=== PATIENT | female | born 1960 | race Caucasian/White ===

== ENCOUNTER 2019-06-17 04:22 | Emergency (ER) | payer SELFPAY ==
[~2019-06-17] VITALS: Ht 177.8 cm; Wt 81.2 kg
--- OUTSIDE RECORDS SUMMARY | 2019-06-17 04:24 | XMS REPORT ---
[facility] Address Unknown Phone Unavailable Care Team Providers Care Telescope Operator Name Role Phone Unavailable Unavailable Problems This patient has no known problems. Allergies, Adverse Reactions, Alerts This patient has no known allergies or adverse reactions. Medications This patient has no known medications. Encounters Start Date/Time End Date/Time Encounter Type Admission Type Attending [facility] Care Department Encounter ID 2019-09-10 00:00:00 2019-09-10 00:00:[address] [facility] [id number] 2019-06-25 00:00:00 2019-06-25 00:00:[address] [facility] [id number] 2019-06-14 11:38:10 2019-06-14 11:38:[address] [facility] [id number] 2019-03-30 11:21:07 2019-03-30 11:21:[address] [facility] [id number] 2019-03-05 00:00:00 2019-03-05 00:00:[address] [facility] [id number] 2019-02-26 00:00:00 2019-02-26 00:00:[address] [facility] [id number] 2019-02-25 14:59:25 2019-02-25 14:59:[address] [facility] [id number] 2019-02-24 07:55:33 2019-02-24 07:55:[address] [facility] [id number] 2019-02-11 00:00:00 2019-02-11 00:00:[address] [facility] [id number] 2019-02-08 15:06:45 2019-02-08 15:06:[address] [facility] [id number] 2019-02-01 08:11:33 2019-02-01 08:11:[address] [facility] [id number] 2019-01-28 14:42:49 2019-01-28 14:42:[address] [facility] [id number] 2019-01-27 10:13:55 2019-01-27 10:13:[address] [facility] [id number] 2019-01-24 21:43:02 2019-01-24 21:43:[address] [facility] [id number] 2019-01-24 19:42:17 2019-01-24 19:42:17 Emergency [facility] [id number] 2018-11-13 09:59:00 2018-11-13 09:59:[address] [facility] [id number] 2018-11-12 10:55:15 2018-11-12 10:55:[address] [facility] [id number] 2018-10-26 00:00:00 2018-10-26 00:00:[address] [facility] [id number] 2018-07-30 09:00:52 2018-07-30 09:00:[address] [facility] [id number] 2018-07-27 00:00:00 2018-07-27 00:00:[address] [facility] [id number] 2018-07-20 00:00:00 2018-07-20 00:00:[address] [facility] [id number] 2018-07-15 00:00:00 2018-07-15 00:00:[address] [facility] [id number] 2018-07-03 00:00:00 2018-07-03 00:00:[address] [facility] [id number] 2018-07-02 00:00:00 2018-07-02 00:00:[address] [facility] [id number] 2018-07-01 00:00:00 2018-07-01 00:00:[address] [facility] [id number] 2018-06-15 14:52:44 2018-06-15 14:52:[address] [facility] [id number] 2018-06-11 00:00:00 2018-06-11 00:00:[address] [facility] [id number] 2018-04-30 11:15:56 2018-04-30 11:15:[address] [facility] [id number] 2018-04-28 14:34:24 2018-04-28 14:34:[address] [facility] [id number] 2018-04-23 11:07:43 2018-04-23 11:07:[address] [facility] [id number] 2018-03-17 00:00:00 2018-03-17 00:00:[address] [facility] [id number] 2018-03-12 11:39:26 2018-03-12 11:39:[address] [facility] [id number] 2018-03-12 08:49:46 2018-03-12 08:49:[address] [facility] [id number] 2018-03-10 00:00:00 2018-03-10 00:00:[address] [facility] [id number] 2018-02-11 13:29:55 2018-02-11 13:29:[address] [facility] [id number] 2018-01-22 08:41:14 2018-01-22 08:41:[address] [facility] [id number] 2018-01-20 14:58:57 2018-01-20 14:58:[address] [facility] [id number] 2018-01-20 14:11:17 2018-01-20 14:11:[address] [facility] [id number] 2017-12-23 14:51:21 2017-12-23 14:51:[address] [facility] [id number] 2017-12-18 00:00:00 2017-12-18 00:00:[address] [facility] [id number] 2017-11-20 00:00:00 2017-11-20 00:00:[address] [facility] [id number] 2017-11-11 00:00:00 2017-11-11 00:00:[address] [facility] [id number] 2017-10-23 00:00:00 2017-10-23 00:00:[address] [facility] [id number] 2017-10-15 06:08:00 2017-10-15 06:08:00 Outpatient [facility] [id number] 2017-10-15 00:00:00 2017-10-15 00:00:[address] [facility] [id number] 2017-10-13 07:07:54 2017-10-13 07:07:[address] [facility] [id number] 2017-10-13 00:00:00 2017-10-13 00:00:[address] [facility] [id number] 2017-10-07 13:03:39 2017-10-07 13:03:[address] [facility] [id number] 2017-10-02 08:30:07 2017-10-02 08:30:[address] [facility] [id number] 2017-09-26 14:25:32 2017-09-26 14:25:[address] [facility] [id number] 2017-09-12 10:30:04 2017-09-12 10:30:[address] [facility] [id number] 2017-09-02 00:00:00 2017-09-02 00:00:[address] [facility] [id number] 2017-08-20 15:06:29 2017-08-20 15:06:[address] [facility] [id number] 2017-08-13 10:36:54 2017-08-13 10:36:[address] [facility] [id number] 2017-08-13 09:47:25 2017-08-13 09:47:[address] [facility] [id number] 2017-08-01 10:37:51 2017-08-01 10:37:[address] [facility] [id number]
--- OUTSIDE RECORDS SUMMARY | 2019-06-17 04:24 | XMS REPORT | Clinical Summary ---
Author Author [facility] Organization [facility] Address Unknown Phone Unavailable Care Team Providers Care Product Designer Name Role Phone Susan Whittington MD PCP Allergies Comments Active Allergy Reactions Severity Noted Date Codeine Itching High 08/13/2017 Medications End Date Status Medication Sig Dispensed Refills Start Date Active traMADol (ULTRAM) 50 mg Take 1 tablet 30 tablet 0 tabletIndications: Caries by mouth 7 involving multiple every 6 hours surfaces of tooth as needed for Pain. Active Meloxicam 15 mg Take 1 tablet 30 tablet 1 tabletIndications: Pain by mouth 8 of right heel daily. Active terbinafine HCl (LAMISIL) Take 1 tablet 30 tablet 0 250 mg tabletIndications: by mouth 8 Onychomycosis daily. Active naproxen (NAPROSYN) 500 Take 1 tablet 40 tablet 0 mg tabletIndications: by mouth 2 9 Scoliosis of times daily thoracolumbar region due (with meals). to degenerative disease of spine in adult Active venlafaxine (EFFEXOR XR) Take 1 30 capsule 3 150 mg extended release capsule by 9 capsuleIndications: mouth daily. Bipolar affective disorder, currently depressed, mild Active lamoTRIgine (LAMICTAL) Take 1 tablet 30 tablet 3 100 mg tabletIndications: by mouth 9 Bipolar affective daily. disorder, currently depressed, mild Active QUEtiapine (SEROQUEL) 50 Take 1 tablet 30 tablet 3 mg tabletIndications: by mouth at 9 Bipolar affective bedtime disorder, currently nightly. depressed, mild 11/12/2018 Discontinued ibuprofen (MOTRIN) 600 mg Take 1 tablet 30 tablet 0 tabletIndications: Caries by mouth 7 involving multiple every 8 hours surfaces of tooth as needed for Pain. 11/12/2018 Discontinued ibuprofen (MOTRIN) 800 mg Take 1 tablet 60 tablet 0 tabletIndications: by mouth 8 Plantar fasciitis every 8 hours as needed for Pain. 07/30/2018 Discontinued lamoTRIgine (LAMICTAL) Take 1 tablet 30 tablet 3 100 mg tabletIndications: by mouth 8 Bipolar affective daily. disorder, currently depressed, mild 07/30/2018 Discontinued venlafaxine (EFFEXOR XR) Take 1 30 capsule 3 37.5 mg extended release capsule by 8 capsuleIndications: mouth daily. Bipolar affective disorder, currently depressed, mild 07/30/2018 Discontinued QUEtiapine (SEROQUEL) 50 Take 1 tablet 60 tablet 3 mg tabletIndications: by mouth 2 8 Bipolar affective times daily. disorder, currently depressed, mild 11/12/2018 Discontinued venlafaxine (EFFEXOR XR) Take 1 30 capsule 2 75 mg extended release capsule by 8 capsuleIndications: mouth daily. Bipolar affective disorder, currently depressed, mild 01/27/2019 Discontinued QUEtiapine (SEROQUEL) 50 Take 1 tablet 60 tablet 2 mg tabletIndications: by mouth 2 8 Bipolar affective times daily disorder, currently May take both depressed, mild tablets together at night for better tolerability. 11/12/2018 Discontinued lamoTRIgine (LAMICTAL) Take 1 tablet 30 tablet 2 100 mg tabletIndications: by mouth 8 Bipolar affective daily. disorder, currently depressed, mild 01/27/2019 Discontinued venlafaxine (EFFEXOR XR) Take 1 30 capsule 0 75 mg extended release capsule by 9 capsuleIndications: mouth daily Bipolar affective Will need to disorder, currently be seen by depressed, mild psychiatrist before any further refills after this.. 01/27/2019 Discontinued lamoTRIgine (LAMICTAL) Take 1 tablet 30 tablet 0 100 mg tabletIndications: by mouth 9 Bipolar affective daily Will disorder, currently need to be depressed, mild seen by psychiatrist before any further refills after this.. 01/24/2019 Discontinued ibuprofen (MOTRIN) 800 mg Take 1 tablet 30 tablet 0 tabletIndications: Acute by mouth 9 malignant otitis externa every 8 hours of both ears as needed for Pain. 11/13/2018 Discontinued [id number] Instill 3 10 mL 0 ortisone (CORTISPORIN) Drops in each 9 3.5-10,000-1 ear 4 times mg/mL-unit/mL-% otic daily for 10 solutionIndications: days. 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 03/30/2019 Discontinued lamoTRIgine (LAMICTAL) 25 Take one tab 60 tablet 1 mg tabletIndications: PO daily for 9 Bipolar affective 2 weeks, then disorder, currently increase to depressed, mild two tabs PO daily for remainder. 03/30/2019 Discontinued QUEtiapine (SEROQUEL) 50 Take 1 tablet 60 tablet 1 mg tabletIndications: by mouth 2 9 Bipolar affective times daily disorder, currently May take both depressed, mild tablets together at night for better tolerability. 03/30/2019 Discontinued venlafaxine (EFFEXOR XR) Take 1 30 capsule 1 75 mg extended release capsule by 9 capsuleIndications: mouth daily. Bipolar affective disorder, currently depressed, mild 02/07/2019 sulfamethoxazole-trimetho Take 1 tablet 20 tablet 0 prim (BACTRIM DS) 800-160 by mouth 2 9 mg per tabletIndications: times daily Flank pain for 10 days. 06/14/2019 Discontinued lamoTRIgine (LAMICTAL) Take 1 tablet 90 tablet 0 100 mg tabletIndications: by mouth 9 Bipolar affective daily. disorder, currently depressed, mild 06/14/2019 Discontinued venlafaxine (EFFEXOR XR) Take 1 90 capsule 0 75 mg extended release capsule by 9 capsuleIndications: mouth daily. Bipolar affective disorder, currently depressed, mild 06/14/2019 Discontinued QUEtiapine (SEROQUEL) 50 Take 1 tablet 90 tablet 0 mg tabletIndications: by mouth at 9 Bipolar affective bedtime disorder, currently nightly May depressed, mild take both tablets together at night for better tolerability. 06/14/2019 Discontinued venlafaxine (EFFEXOR XR) Take one 90 capsule 0 37.5 mg extended release capsule daily 9 capsuleIndications: together with Bipolar affective the 75 mg disorder, currently capsule for depressed, mild 112.5 mg total/day. Active Problems Problem Noted Date Edentulism 06/16/2018 Caries involving multiple surfaces of tooth 10/07/2017 Overview: Added automatically from request for surgery [id number] Dental examination 09/06/2014 Periodontal disease 09/06/2014 Wrist pain, left 06/15/2014 Decay, teeth 2012 Encounters Care Team Description Date Type Specialty Kailash Wilson MD Bipolar affective disorder, currently depressed, mild 06/14/2019 Office Visit Psychiatry 06/14/2019 Travel Kailash Wilson MD Bipolar affective disorder, currently depressed, mild 06/08/2019 Refill Psychiatry Kailash Wilson MD Bipolar affective disorder, currently depressed, mild 06/01/2019 Refill Psychiatry Kailash Wilson MD Bipolar affective disorder, currently depressed, mild 06/01/2019 Refill Psychiatry Kailash Wilson MD Bipolar affective disorder, currently depressed, mild 03/30/2019 Office Visit Psychiatry 03/30/2019 Travel Chance Cole MD Diverticulosis of colon (Primary Dx); Adrenal adenoma, left; Scoliosis of thoracolumbar region due to degenerative disease of spine in adult; Elevated blood pressure reading; Dietary counseling for Above / Below Normal BMI; Exercise counseling for Above Normal BMI Only!; Screening for colon cancer; Need for vaccination; Encounter to discuss test results 02/24/2019 Office Visit Family Practice 02/24/2019 Travel Maria Fernanda Degroot NP Adrenal nodule 02/08/2019 Hospital Radiology Encounter Maria Fernanda Degroot NP Adrenal nodule (Primary Dx) 02/05/2019 Orders Only Family Practice Maria Fernanda Degroot NP Colon cancer screening 02/01/2019 Lab Appointment Lab Maria Fernanda Degroot NP Adrenal nodule (Primary Dx) 02/01/2019 Orders Only Family Practice Maria Fernanda Degroot NP Right renal mass (Primary Dx); Flank pain; Colon cancer screening; Breast cancer screening; Preventative health care; Immunization due 01/28/2019 Office Visit Family Practice Kailash Wilson MD Bipolar affective disorder, currently depressed, mild 01/27/2019 Office Visit Psychiatry 01/27/2019 Travel Yadiel Mariee MD Acute abdominal pain (Primary Dx); Adrenal mass 01/24/2019 Emergency Emergency Medicine - 01/25/2019 01/24/2019 Travel Maria Fernanda Degroot NP Acute pain of left shoulder; Rib pain on left side 11/13/2018 Ancillary Radiology Procedure Maria Fernanda Degroot NP 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 (Primary Dx) 11/13/2018 Orders Only Family Practice Maria Fernanda Degroot NP Acute pain of left shoulder (Primary Dx); Rib pain on left side; 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 11/12/2018 Office Visit Family Practice 11/12/2018 Travel Kailash Wilson MD Bipolar affective disorder, currently depressed, mild 11/12/2018 Refill Psychiatry Kailash Wilson MD Bipolar affective disorder, currently depressed, mild 07/30/2018 Office Visit Psychiatry after 06/16/2018 Immunizations Name Administration Dates Next Due Tdap (Tetanus Toxoid, 02/24/2019 (Deferred: Patient Refused) Reduced Diphtheria Toxoid And Acellular Pertussis, Absorbed) Zoster Vaccine (Shingrix) 02/24/2019 (Deferred: Vaccine Unavailable) Family History Medical History Relation Name Comments Cancer Father Heart Father Hypertension Father Stroke Father Arthritis Mother Diabetes Mother Hypertension Mother Relation Name Status Comments Brother Alive Brother Alive Brother Alive Father Mother Alive Sister Alive Social History Date Tobacco Use Types Packs/Day Years Used Current Every Day Smoker Cigarettes 1 Smokeless Tobacco: Never Used Tobacco Cessation: Ready to Quit: Yes Drinks/Week oz/Week Comments Alcohol Use hx No Food Insecurity Answer Date Recorded Within the past 12 months, you worried that your Never true 11/12/2018 food would run out before you got money to buy more. Within the past 12 months, the food you bought Never true 11/12/2018 just didn't last and you didn't have money to get more. Sex Assigned at Date Recorded Not on file Industry Job Start Date Occupation Not on file Not on file Not on file Travel End Travel History Travel Start No recent travel history available. Last Filed Vital Signs Reading Time Taken Comments Vital Sign 142/96 06/14/2019 12:11 PM CDT Blood Pressure 82 06/14/2019 12:11 PM CDT Pulse 36.5 C (97.7 F) 06/14/2019 12:11 PM CDT Temperature 16 06/14/2019 12:11 PM CDT Respiratory Rate 98% 01/25/2019 12:10 AM CDT Oxygen Saturation - - Inhaled Oxygen Concentration 74.4 kg (164 lb 1.6 oz) 06/14/2019 12:11 PM CDT Weight 157.5 cm (5' 2") 06/14/2019 12:11 PM CDT Height 30.01 06/14/2019 12:11 PM CDT Body Mass Index Plan of Treatment Care Team Description Date Type Specialty Kailash Wilson MD [address] [address] [phone] 09/10/2019 Office Visit Psychiatry Health Maintenance Due Date Last Done Comments Breast Cancer Scrn 07/13/2016 07/13/2015 (Yearly) Cervical Cancer Scrn (3 05/04/2018 05/04/2015 Yrs) Colorectal Cancer Scrn 02/26/2020 02/25/2019, 02/11/2018 Annual (FIT/FOBT) Age 50 to 75 Procedures Comments Procedure Name Priority Date/Time Associated Diagnosis FECAL OCCULT BLOOD Routine 02/25/2019 Colon cancer screening 3:00 PM CDT HEMOCCULT KIT FOR Routine 02/24/2019 Screening for colon SPECIMEN COLLECTION AT 9:16 AM CDT cancer HOME CT ABDOMEN W/O CONTRAST Routine 02/08/2019 Adrenal nodule 3:51 PM CDT VIT D, 25-HYDROXY Routine 02/01/2019 Preventative health care 8:02 AM CDT THYROID STIMULATING Routine 02/01/2019 Preventative health care HORMONE (TSH) 8:02 AM CDT LIPID PROFILE Routine 02/01/2019 Preventative health care 8:02 AM CDT HIV-1/HIV-2 ROUTINE Routine 02/01/2019 Preventative health care SCREENING 8:02 AM CDT HEMOGLOBIN A1C Routine 02/01/2019 Preventative health care 8:02 AM CDT FREE T4 Routine 02/01/2019 Preventative health care 8:02 AM CDT UA MICROSCOPIC Routine 01/28/2019 4:00 PM CDT URINE CULTURE Routine 01/28/2019 Flank pain 4:00 PM CDT URINALYSIS STAT 01/28/2019 Flank pain 4:00 PM CDT HEMOCCULT KIT FOR Routine 01/28/2019 Colon cancer screening SPECIMEN COLLECTION AT 3:17 PM CDT HOME 12 LEAD EKG Routine 01/24/2019 11:00 PM CDT URINALYSIS STAT 01/24/2019 10:[address] ABDOMEN AND PELVIS STAT 01/24/2019 Acute abdominal pain CONTRAST 10:02 PM CDT BMP POC Routine 01/24/2019 8:41 PM CDT VBG POC Routine 01/24/2019 8:40 PM CDT LIPASE STAT 01/24/2019 8:30 PM CDT LIVER PROFILE STAT 01/24/2019 8:30 PM CDT CBC/DIFF STAT 01/24/2019 8:30 PM CDT XRAY RIBS UNILATERAL 2 Routine 11/13/2018 Rib pain on left side VIEWS 10:32 AM [employer] XRAY SHOULDER 2 VIEWS MIN Routine 11/13/2018 Acute pain of left 10:32 AM [employer] shoulder after 06/16/2018 Results * OCCULT BLOOD ICT (02/25/2019 3:00 PM CDT) Occult Blood Negative NEG [facility] 2 Specimen Stool Performing Organization Address City/State/Zipcode Phone Number DANIELITO [facility] 2 * CT ABDOMEN W/O CONTRAST (02/08/2019 3:51 PM CDT) Specimen Impressions Performed At IMPRESSION: SMS 1.Redemonstration of left adrenal nodule, with low-density, consistent with adrenal adenoma. 2.Mild stranding around the right kidney, similar to prior CT. This [facility] radiology report is a preliminary resident dictation until finalized by an attending.Changes to this preliminary report may occur in an additional preliminary or finalized version. Dictated By: Ahmet Alexander MD, 02/08/2019 4:18 PM I have reviewed the study and agree with the findings in this report. Signed By: Yadiel Lindsey MD, 02/08/2019 4:19 PM Narrative Performed At EXAM: CT ABDOMEN WITHOUT CONTRAST SMS DATE: 02/08/2019 3:52 PM INDICATION: Abnormal findings on diagnostic imaging of other parts of digestive tract. Adrenal nodule COMPARISON: CT abdomen pelvis on 01/24/2019 TECHNIQUE: Volumetric CT of the abdomen is acquired without the intravenous administration of contrast. Axial, coronal and sagittal images are provided. IV contrast: None. Enteric contrast: None. DLP: 549 mGy-cm FINDINGS: Lines, tubes and hardware: None. Lower thorax: Clear. Liver: Hepatomegaly. Biliary tree: No intra- or extrahepatic biliary ductal dilation. Gallbladder: Normal. Pancreas: Normal. Spleen: Normal. Adrenals: Redemonstration of 1.9 x 1.4 cm left adrenal nodule with density of -7 Hounsfield units. Kidneys and ureters: Mild stranding around the right kidney, similar to prior CT. Gastrointestinal tract: Stomach: Normal. Small bowel: Normal. Colon: Normal. Peritoneum, mesentery and retroperitoneum: No free air, ascites or loculated fluid. Lymph nodes: Normal. Vasculature: Aorta and branches: Vascular calcifications. IVC and veins: Normal. Portal vasculature: Normal. Bones: No acute abnormality. Age-related degenerative findings. Soft tissues: Normal. Procedure Note Interface, Rad/Mammog In - 02/08/2019 4:24 PM CDT EXAM: CT ABDOMEN WITHOUT CONTRAST DATE: 02/08/2019 3:52 PM INDICATION: Abnormal findings on diagnostic imaging of other parts of digestive tract. Adrenal nodule COMPARISON: CT abdomen pelvis on 01/24/2019 TECHNIQUE: Volumetric CT of the abdomen is acquired without the intravenous administration of contrast. Axial, coronal and sagittal images are provided. IV contrast: None. Enteric contrast: None. DLP: 549 mGy-cm FINDINGS: Lines, tubes and hardware: None. Lower thorax: Clear. Liver: Hepatomegaly. Biliary tree: No intra- or extrahepatic biliary ductal dilation. Gallbladder: Normal. Pancreas: Normal. Spleen: Normal. Adrenals: Redemonstration of 1.9 x 1.4 cm left adrenal nodule with density of -7 Hounsfield units. Kidneys and ureters: Mild stranding around the right kidney, similar to prior CT. Gastrointestinal tract: Stomach: Normal. Small bowel: Normal. Colon: Normal. Peritoneum, mesentery and retroperitoneum: No free air, ascites or loculated fluid. Lymph nodes: Normal. Vasculature: Aorta and branches: Vascular calcifications. IVC and veins: Normal. Portal vasculature: Normal. Bones: No acute abnormality. Age-related degenerative findings. Soft tissues: Normal. IMPRESSION IMPRESSION: 1. Redemonstration of left adrenal nodule, with low-density, consistent with adrenal adenoma. 2. Mild stranding around the right kidney, similar to prior CT. This [facility] radiology report is a preliminary resident dictation until finalized by an attending. Changes to this preliminary report may occur in an additional preliminary or finalized version. Dictated By: Ahmet Alexander MD, 02/08/2019 4:18 PM I have reviewed the study and agree with the findings in this report. Signed By: Yadiel Lindsey MD, 02/08/2019 4:19 PM Performing Organization Address City/[facility] Phone Number SMS * VIT D, 25-HYDROXY (02/01/2019 8:02 AM CDT) Vit D, 22.9 (L) 30 - 100 ng/mL BT DIAGNOSTIC 25-Hydroxy Comment: IMMUNOLOGY Vitamin D deficiency has been defined by the [place] of Medicine and Endocrine Society guideline as a level of serum 25-OH Vitamin D less than 20 ng/mL. The Endocrine Society further defines Vitamin D insufficiency as a level between 21 and 29 ng/mL and sufficiency as a level between 30 and 100 ng/mL. Specimen Performing Organization Address [facility] Phone Number [facility] IMMUNOLOGY * HIV-1/HIV-2 ROUTINE SCREENING (02/01/2019 8:02 AM CDT) HIV-1/HIV-2 Negative NEG BT MAIN-STATION 3 Specimen Performing Organization Address [facility] Phone Number MISYS BT MAIN-STATION 3 * HEMOGLOBIN A1C (02/01/2019 8:02 AM CDT) Hemoglobin A1c 6.1 4.3 - 6.1 % BT DIAGNOSTIC IMMUNOLOGY Est Average 128.4 mg/dL BT DIAGNOSTIC Gluc IMMUNOLOGY Specimen Blood Performing Organization Address [facility] Phone Number [facility]IS[facility] BT DIAGNOSTIC IMMUNOLOGY * TSH (02/01/2019 8:02 AM CDT) TSH 11.21 (H) 0.57 - 3.74 uIU/mL BT MAIN-STATION 1 Specimen Blood Performing Organization Address [facility] Phone Number MISYS BT MAIN-STATION 1 * FREE T4 (02/01/2019 8:02 AM CDT) Free T4 0.76 0.61 - 1.18 ng/dl BT MAIN-STATION Comment: 1 females: 1st Trimester-0.52-1.10 ng/dL 2nd Trimester=0.45-0.99 ng/dL 3rd Trimester=0.48-0.95 ng/dL Specimen Blood Performing Organization Address [facility] Phone Number MISYS BT MAIN-STATION 1 * LIPID PROFILE (02/01/2019 8:02 AM CDT) Cholesterol 294 mg/dL BT MAIN-STATION Comment: 1 REFERENCE RANGE: Desirable: <200 mg/dL Borderline: 200-240 mg/dL High Risk: >240 mg/dL Triglyceride 146 <150 mg/dL BT MAIN-STATION Comment: 1 REFERENCE RANGE: Normal: <150 mg/dL Borderline High: 150-199 mg/dL High: 200-499 mg/dL Very High: >ss=811 mg/dL HDL 50 mg/dL BT MAIN-STATION Comment: 1 Increased CHD risk: <40 mg/dL Decreased CHD risk: >60 mg/dL LDL 215 mg/dL BT MAIN-STATION Comment: 1 REFERENCE RANGE: Optimal: <100 mg/dL Near Optimal: 100-129 mg/dL Borderline High: 130-159 mg/dL High: 160-189 mg/dL Very High: >zh=610 mg/dL Specimen Blood Performing Organization Address [facility] Phone Number DANIELITO BT MAIN-STATION 1 * UA MICROSCOPIC (01/28/2019 4:00 PM CDT) WBC 1-5 0 - 5 /HPF [facility] RBC 4-10 0 - 4 /HPF [facility] Epithelial Cell 1 /HPF [facility] Bacteria Few [facility] Specimen Performing Organization Address City/[facility] Phone Number [facility] * UA CHEMISTRIES (01/28/2019 4:00 PM CDT) Only the most recent of 2 results within the time period is included. Color Yellow [facility] Clarity Clear [facility] Specific <1.005 1.001 - 1.035 [facility] [place] pH 5.5 5 - 8 [facility] Protein Negative NEG [facility] Glucose Negative NEG [facility] Ketones Negative NEG [facility] Bilirubin Negative NEG [facility] Nitrate Negative NEG [facility] Urobilinogen,Se 0.2 0.2 - 1.0 EU/dL MAN [facility] mi-Qn Leukocyte Negative NEG [facility] Occult Blood 2+ (A) NEG [facility] Specimen Urine Performing Organization Address [facility] Phone Number [facility] * URINE CULTURE (01/28/2019 4:00 PM CDT) Spec Urine [facility] Description Order Comments None [facility] Culture Resembles mixed uro-genital BT MICROBIOLOGY lacy Report Status Final 01/31/2019 BT MICROBIOLOGY Specimen Urine - Voided, urine Performing Organization Address City/[facility] Phone Number [facility] BT MICRO[facility]OLOG[facility] * 12 LEAD EKG (01/24/2019 11:00 PM CDT) 12 LEAD EKG [facility] Date:2019-01-24 Pat Name: IJEOMA RAMÍREZ Department: [id number] Room: Gender: F [employer] Operator: :[id number] 2-06 Requested By: YADIEL MARIEE Order Number: [id number] Reading MD: Yadiel DE LA TORRE Measurements Intervals [place] Rate: 82 P:57 MS: 120 QRS: -35 QRSD: 91 T:34 QT: 393 QTc:460 Interpretive Statements SINUS RHYTHM LEFT AXIS DEVIATION [QRS AXIS < -30] Poor anterior R wave cannot r/o prior Anteroseptal Infarct Abnormal ECG Electronically Signed On 01-25-2019 9:14:08 CDT by Yadiel DE LA TORRE Specimen Performing Organization Address City/State/Zipcode Phone Number SMS * CT ABDOMEN AND PELVIS CONTRAST (01/24/2019 10:02 PM CDT) Specimen Impressions Performed At IMPRESSION: SMS 1.Parenchymal hypodensity along the medial aspect of the right kidney with minimal perinephric fat stranding is concerning for vascular insult/infarct. Pyelonephritis is the differential consideration. Recommend correlation with urinalysis and white count. 2.Mild urinary bladder wall thickening. Please correlate with urinalysis. 3.Diverticulosis without findings suggest diverticulitis. 4.Hepatomegaly with diffuse fatty infiltration. 5.Indeterminate left adrenal nodule, 1.2 cm. Recommend nonemergent adrenal protocol CT/MRI for further evaluation and characterization. 6.Multilevel degenerative changes of the thoracolumbar spine with L3-4 to L5-S1 degenerative disc disease. This [facility] radiology report is a preliminary resident dictation until finalized by an attending.Changes to this preliminary report may occur in an additional preliminary or finalized version. Dictated By: Danielle Guzmán MD, 01/24/2019 10:26 PM I have reviewed the study and agree with the findings in this report. Signed By: Fermín Alba MD, 01/24/2019 10:36 PM Narrative Performed At EXAM: CT ABDOMEN AND PELVIS WITH CONTRAST [facility] DATE: 01/24/2019 10:02 PM INDICATION: diffuse acute abd pain. Acute abdominal pain ADDITIONAL INFORMATION: None. COMPARISON: None. TECHNIQUE: Volumetric CT of the abdomen and pelvis is acquired following the intravenous administration of contrast. Axial, coronal and sagittal images are provided. IV contrast: 98 mL of Omnipaque 300 Enteric contrast: None. DLP: 1015.91 mGy-cm FINDINGS: Lines, tubes and hardware: None. Lower thorax: Clear. Liver: Mild hepatomegaly with diffuse hepatic steatosis. No focal lesion. Biliary tree: No intra- or extrahepatic biliary ductal dilation. Gallbladder: Normal. Pancreas: Normal. Spleen: Normal. Adrenals: 1.3 cm indeterminate left adrenal nodule. Kidneys and ureters: Hypodensity noted along the medial aspect of the right kidney with minimal perinephric fat stranding. No hydronephrosis. No calculi. Too small to contrast hypodensities noted in the superior pole of left kidney. Bladder: Partially distended and demonstrates mild wall thickening. Reproductive organs: Uterus and adnexa are unremarkable. Gastrointestinal tract: Stomach: Normal. Small bowel: Normal. Colon: Scattered diverticuli noted predominantly in the sigmoid colon without findings to suggest diverticulitis. Oral contrast noted as seen in the ascending colon. Appendix: Normal. Peritoneum, mesentery and retroperitoneum: No free air, ascites or loculated fluid. Lymph nodes: Normal. Vasculature: Aorta and branches: Vascular calcifications. IVC and veins: Normal. Portal vasculature: Normal. Bones: No acute abnormality. Multilevel degenerative changes of the thoracolumbar spine are visualized. L3-4 to L5-S1 degenerative disc disease is visualized with vacuum disc phenomenon. Soft tissues: Normal. Procedure Note Interface, Rad/Mammog In - 01/24/2019 10:41 PM CDT EXAM: CT ABDOMEN AND PELVIS WITH CONTRAST DATE: 01/24/2019 10:02 PM INDICATION: diffuse acute abd pain. Acute abdominal pain ADDITIONAL INFORMATION: None. COMPARISON: None. TECHNIQUE: Volumetric CT of the abdomen and pelvis is acquired following the intravenous administration of contrast. Axial, coronal and sagittal images are provided. IV contrast: 98 mL of Omnipaque 300 Enteric contrast: None. DLP: 1015.91 mGy-cm FINDINGS: Lines, tubes and hardware: None. Lower thorax: Clear. Liver: Mild hepatomegaly with diffuse hepatic steatosis. No focal lesion. Biliary tree: No intra- or extrahepatic biliary ductal dilation. Gallbladder: Normal. Pancreas: Normal. Spleen: Normal. Adrenals: 1.3 cm indeterminate left adrenal nodule. Kidneys and ureters: Hypodensity noted along the medial aspect of the right kidney with minimal perinephric fat stranding. No hydronephrosis. No calculi. Too small to contrast hypodensities noted in the superior pole of left kidney. Bladder: Partially distended and demonstrates mild wall thickening. Reproductive organs: Uterus and adnexa are unremarkable. Gastrointestinal tract: Stomach: Normal. Small bowel: Normal. Colon: Scattered diverticuli noted predominantly in the sigmoid colon without findings to suggest diverticulitis. Oral contrast noted as seen in the ascending colon. Appendix: Normal. Peritoneum, mesentery and retroperitoneum: No free air, ascites or loculated fluid. Lymph nodes: Normal. Vasculature: Aorta and branches: Vascular calcifications. IVC and veins: Normal. Portal vasculature: Normal. Bones: No acute abnormality. Multilevel degenerative changes of the thoracolumbar spine are visualized. L3-4 to L5-S1 degenerative disc disease is visualized with vacuum disc phenomenon. Soft tissues: Normal. IMPRESSION IMPRESSION: 1. Parenchymal hypodensity along the medial aspect of the right kidney with minimal perinephric fat stranding is concerning for vascular insult/infarct. Pyelonephritis is the differential consideration. Recommend correlation with urinalysis and white count. 2. Mild urinary bladder wall thickening. Please correlate with urinalysis. 3. Diverticulosis without findings suggest diverticulitis. 4. Hepatomegaly with diffuse fatty infiltration. 5. Indeterminate left adrenal nodule, 1.2 cm. Recommend nonemergent adrenal protocol CT/MRI for further evaluation and characterization. 6. Multilevel degenerative changes of the thoracolumbar spine with L3-4 to L5-S1 degenerative disc disease. This [facility] radiology report is a preliminary resident dictation until finalized by an attending. Changes to this preliminary report may occur in an additional preliminary or finalized version. Dictated By: Danielle Guzmán MD, 01/24/2019 10:26 PM I have reviewed the study and agree with the findings in this report. Signed By: Fermín Alba MD, 01/24/2019 10:36 PM Performing Organization Address City/State/Zipcode Phone Number SMS * BMP POC (01/24/2019 8:41 PM CDT) CO2 POC 29 21 - 32 mmol/L [facility] Chloride POC 99 98 - 107 mmol/L [facility] Potassium POC 4.9 3.50 - 5.10 mmol/L [facility] Sodium POC 134 (L) 136 - 145 mmol/L [facility] Glucose POC 99 74 - 106 mg/dL [facility] Urea Nitrogen 11 7 - 18 mg/dL [facility] POC [facility] 1 Creatinine POC 0.8 0.6 - 1.3 mg/dL [facility] 1 Calcium Ionized 1.05 (L) 1.15 - 1.29 mmol/L [facility] POC [facility] 1 Hemoglobin POC 17.0 (H) 12.0 - 16.0 g/dL [facility] 1 Hematocrit POC 50.0 (H) 37.0 - 47.0 % [facility] 1 GFR, Estimated >60 mL/min/1.73 m2 [facility] 1 GFR, Estim, >60 mL/min/1.73 m2 [facility] Afr-Am [facility] 1 Specimen Performing Organization Address [facility] Phone Number MISYS [facility] * VBG POC (01/24/2019 8:40 PM CDT) pH, [place] POC 7.45 (H)Comment: Physician 7.33 - 7.43 [facility] Not[facility] 1 pCO2, [place] POC 39.6 38.0 - 50.0 mm Hg [facility] 1 pO2, [place] POC 36 (L) 50 - 75 mm Hg [facility] 1 Base Excess, 3 mmol/L [facility] [place] POC [facility] 1 HCO3, [place] POC 27.4 (H) 22.0 - 26.0 mmol/L [facility] % Sat, [place] POC 71 60 - 85 % [facility] 1 Lactic Acid, 1.41 0.4 - 2.0 mmol/L [facility] [place] POC [facility] 1 Sample Type [place] [facility] 1 TCO2, [place] POC 29 21 - 32 mmol/L [facility] 1 Specimen Performing Organization Address [facility] Phone Number MISYS [facility] * LIVER PROFILE (01/24/2019 8:30 PM CDT) Protein, Total, 6.4 6.0 - 8.3 g/dL [facility] Serum [facility] 1 Albumin 4.1 3.7 - 5.3 g/dL [facility] 1 Bilirubin, 0.5 0.2 - 1.2 mg/dL [facility] Total [facility] 1 Alkaline 75 34 - 104 U/L [facility] Phosphatase, S [facility] 1 AST (SGOT) 40 (H) 13 - 39 U/L [facility] 1 ALT 32 7 - 52 U/L [facility] 1 D Bilirubin 0.1 0.0 - 0.2 mg/dL [facility] 1 Specimen Blood Performing Organization Address [facility]/Zipcode Phone Number [facility] * LIPASE (01/24/2019 8:30 PM CDT) Lipase 11 11 - 81 U/L [facility] 1 Specimen Blood Performing Organization Address [facility]/Zipcode Phone Number MISYS [facility] 1 * CBC/DIFF (01/24/2019 8:30 PM CDT) WBC 19.1 (H) 4.5 - 11.0 K/uL [facility] RBC 4.99 4.20 - 5.40 M/uL [facility] 2 Hemoglobin 15.1 12.0 - 16.0 g/dL [facility] 2 Hematocrit 45.2 37.0 - 47.0 % [facility] MCV 91 82 - 92 fL [facility] MCH 30.3 27.0 - 32.0 pg [facility] MCHC 33.4 32.0 - 36.0 g/dL [facility] RDW 47.9 (H) 36.4 - 46.3 fL [facility] Platelets 271 150 - 400 K/uL [facility] Mean Platelet 11.7 9.4 - 12.4 fL [facility] Volume [facility] 2 Percent NRBC 0.0 [facility] Absolute NRBC 0.00 [facility] Neutrophils 72.2 (H) 34.0 - 70.0 % [facility] Lymphs 18.3 (L) 20.0 - 50.0 % [facility] Monocytes 7.3 5.0 - 12.0 % [facility] Eos 1.1 0.7 - 5.0 % [facility] Basos 0.3 0.1 - 1.2 % [facility] Immature 0.8 (H) 0.0 - 0.5 [facility] Granulocytes [facility] 2 Neutrophils 13.75 (H) 1.56 - 6.13 K/uL [facility] (Absolute) [facility] 2 Lymphs 3.49 1.18 - 3.74 K/uL [facility] (Absolute) [facility] 2 Monocytes(Absol 1.40 (H) 0.24 - 0.36 K/uL [facility] [place] [facility] 2 Eos (Absolute) 0.21 0.04 - 0.36 K/uL [facility] 2 Baso (Absolute) 0.06 0.01 - 0.08 K/uL [facility] 2 Immature Grans 0.15 (H) 0.00 - 0.03 K/uL [facility] (Abs) [facility] 2 Specimen Blood Performing Organization Address [facility] Phone Number MISYS [facility] * XRAY SHOULDER 2 VIEWS MIN (11/13/2018 10:32 AM ORCHID WORKER) Specimen Impressions Performed At IMPRESSION:No radiographic abnormality identified. SMS Signed By: Joe Hills MD, 11/13/2018 10:34 AM Narrative Performed At EXAM: XR LEFT SHOULDER 4 VIEWS SMS DATE:11/13/2018 10:32 AM INDICATION: left shoulder pain s/p fall COMPARISON: None available TECHNIQUE:AP views in internal and external rotation, axillary and a scapular Y view of the shoulder DISCUSSION:No acute fracture or malalignment is identified. No soft tissue abnormality is identified. Procedure Note Interface, Rad/Mammog In - 11/13/2018 10:39 AM ORCHID WORKER EXAM: XR LEFT SHOULDER 4 VIEWS DATE: 11/13/2018 10:32 AM INDICATION: left shoulder pain s/p fall COMPARISON: None available TECHNIQUE: AP views in internal and external rotation, axillary and a scapular Y view of the shoulder DISCUSSION: No acute fracture or malalignment is identified. No soft tissue abnormality is identified. IMPRESSION IMPRESSION: No radiographic abnormality identified. Signed By: Joe Hills MD, 11/13/2018 10:34 AM Performing Organization Address [facility] Phone Number SMS * XRAY RIBS UNILATERAL 2 VIEWS (11/13/2018 10:32 AM ORCHID WORKER) Specimen Impressions Performed At IMPRESSION: No displaced rib fracture identified. SMS Signed By: Joe Hills MD, 11/13/2018 10:34 AM Narrative Performed At EXAM: XR LEFT RIB 2 VIEWS AND PA CHEST SMS DATE:11/13/2018 10:32 AM INDICATION: left rib pain s/p fall COMPARISON: None available TECHNIQUE: PA chest; frontal and oblique views of the ribs DISCUSSION: No displaced rib fracture or other acute bony abnormality is identified. The lungs are clear with no pneumothorax. The heart size is within normal limits. Procedure Note Interface, Rad/Mammog In - 11/13/2018 10:40 AM ORCHID WORKER EXAM: XR LEFT RIB 2 VIEWS AND PA CHEST DATE: 11/13/2018 10:32 AM INDICATION: left rib pain s/p fall COMPARISON: None available TECHNIQUE: PA chest; frontal and oblique views of the ribs DISCUSSION: No displaced rib fracture or other acute bony abnormality is identified. The lungs are clear with no pneumothorax. The heart size is within normal limits. IMPRESSION IMPRESSION: No displaced rib fracture identified. Signed By: Joe Hills MD, 11/13/2018 10:34 AM Performing Organization Address City/State/Zipcode Phone Number SMS after 06/16/2018 Insurance Type Payer Benefit Subscriber ID Effective Phone Address Plan / Dates Group [facility] xxxxxx 2018- [phone] [address] [employer] 2019 [id number], [place] [address] [facility] PLAN FINANCIAL xxxxxx 2018- [phone] [place] [address] Advance Directives Date Inactivated Comments Code Status Date Activated 10/15/2017 1:20 PM Full Code 10/15/2017 6:36 AM
[2019-06-17] MEDS ORDERED: SODIUM CHLORIDE 0.9% 1000ML 1,000 ML IV ONE (04:30)
[2019-06-17] MEDS ORDERED: SODIUM CHLORIDE 0.9% 1000ML 1,000 ML ONE (04:30)
[2019-06-17] MEDS ORDERED: MULTIVITAMINS- 12 INJECTION 10 ML, FOLIC ACID MDV 5 MG, THIAMINE HCL INJ 100 MG in SODI... IV ONE (04:30)
[2019-06-17 04:51] LABS: BASOPHILS # (AUTO) 0.1 (0.0-0.1); BASOPHILS % 0.7 % (0.0-1.0); EOSINOPHILS # (AUTO) 0.2 (0.0-0.4); EOSINOPHILS % 2.6 % (0.0-6.0); HEMATOCRIT 39.3 % (34.2-44.1); HEMOGLOBIN 13.2 g/dL (12.0-16.0); LYMPHOCYTES # (AUTO) 2.8 (1.0-3.2); LYMPHOCYTES % 32.2 % (18.0-39.1); MEAN CORPUSCULAR HEMOGLOBIN 31.4 pg (28-32); MEAN CORPUSCULAR HGB CONC 33.6 g/dL (31-35); MEAN CORPUSCULAR VOLUME 93.3 fL (81-99); MONOCYTES # (AUTO) 0.5 (0.2-0.8); MONOCYTES % 5.7 % (4.4-11.3); NEUTROPHILS # (AUTO) 5.1 (2.1-6.9); NEUTROPHILS % 58.2 % (38.7-80.0); PLATELET COUNT 264 x10e3/uL (140-360); RED BLOOD COUNT 4.21 x10e6/uL (3.6-5.1); RED CELL DISTRIBUTION WIDTH 14.6 % (11.7-14.4)
[2019-06-17 05:11] LABS: ALANINE AMINOTRANSFERASE 10 IU/L (0-55); ALBUMIN 3.3 g/dL (3.5-5.0); ALBUMIN/GLOBULIN RATIO 1.3 (0.8-2.0); ALKALINE PHOSPHATASE 72 IU/L (40-150); ANION GAP 15.8 mmol/L (8-16); BLOOD UREA NITROGEN 13 mg/dL (7-26); BUN/CREATININE RATIO 17 (6-25); CALCIUM 8.3 mg/dL (8.4-10.2); CARBON DIOXIDE 19 mmol/L (22-29); CHLORIDE 100 mmol/L (98-107); CREATINE KINASE 67 IU/L (29-168); CREATININE, SERUM 0.78 mg/dL (0.57-1.11); EST GLOMERULAR FILTRATION RATE > 60 ML/MIN (60-); GLUCOSE 86 mg/dL (74-118); POTASSIUM 3.8 mmol/L (3.5-5.1); SODIUM 131 mmol/L (136-145)
--- NOTE | 2019-06-17 05:48 | Diagnostic Imaging Report ---
CT BRAIN WO HISTORY: Alcohol intoxication COMPARISON: None. TECHNIQUE: Noncontrast axial scans were obtained from skull base to the vertex. Coronal and sagittal reconstructions obtained from the axial data. One or more of the following dose reduction techniques were used: Automated exposure control, adjustment of the mA and/or kV according to patient size, and/or utilization of iterative reconstruction technique. DISCUSSION: Scalp/Skull: Unremarkable. Brain sulci: Appropriate for patient's age. Ventricles: Normal in size and configuration. No hydrocephalus. Extra-axial spaces: No masses or fluid collections. Mild carotid siphon calcifications are present. Parenchyma: No abnormal densities. No mass, hemorrhage, or large vascular territory acute infarct. Dural sinuses: No abnormal densities. Sellar/Suprasellar region: Intact. Skull base: Intact. Incidental findings: Small, nonaggressive sclerotic lesion in the right occipital condyle is likely a bone island. IMPRESSION: No acute intracranial abnormalities. Signed by: Dr. Gerson Todd M.D. on 06/17/2019 5:44 AM
--- NOTE | 2019-06-17 06:13 | Diagnostic Imaging Report ---
EXAMINATION: CHEST SINGLE (PORTABLE) INDICATION: Weakness COMPARISON: None FINDINGS: AP view TUBES and LINES: None. LUNGS: Lungs are well inflated. Right infrahilar hazy opacity partially because the right heart border. PLEURA: No pleural effusion or pneumothorax. HEART AND MEDIASTINUM: The cardiomediastinal silhouette is unremarkable. BONES AND SOFT TISSUES: No acute osseous lesion. Soft tissues are unremarkable. UPPER ABDOMEN: No free air under the diaphragm. IMPRESSION: Right infrahilar hazy opacity may represent pneumonia or atelectasis. Signed by: Richard Fisher DO on 06/17/2019 6:10 AM
--- NOTE | 2019-06-17 07:02 | NUR ---
report given to en voss
--- NOTE | 2019-06-17 07:43 | NUR ---
Neil garrett in [facility] - 06/17/19 at [address] Sosa hold pt finger under water and rinse off; pt finger rinsed off per order
[2019-06-17 09:04] LABS: BILIRUBIN,URINE NEGATIVE (NEGATIVE); CLARITY,URINE CLEAR (CLEAR); COLOR,URINE YELLOW (YELLOW); KETONES,URINE NEGATIVE (NEGATIVE); LEUKOCYTE ESTERASE ,URINE NEGATIVE (NEGATIVE); NITRITE,URINE NEGATIVE (NEGATIVE); PROTEIN,URINE DIPSTICK NEGATIVE (NEGATIVE); URINE UROBILINOGEN 0.2 mg/dL (0.2 - 1)
[2019-06-17 09:08] LABS: AMPHETAMINES SCREEN,URINE NEGATIVE (NEGATIVE); BENZODIAZEPINES SCREEN,URINE NEGATIVE (NEGATIVE); PHENCYCLIDINE SCREEN,URINE NEGATIVE (NEGATIVE)
[2019-06-17 09:14] LABS: BACTERIA,URINE FEW /HPF; EPITHELIAL CELLS,URINE FEW /LPF; RBC,URINE 0-5 /HPF (0-5); WBC,URINE (MAN) 0-5 /HPF (0-5)
--- NOTE | 2019-06-17 09:35 | NUR ---
PER PATIENTS REQUEST, DAUGHTER NORRIS NOTIFIED. ([phone]). NORRIS STATED SHE WILL COME AND QUEEN'S COUNSEL HER MOTHER. PATIENT NOTIFIED.
--- NOTE | 2019-06-17 11:16 | NUR ---
STILL WAITING FOR FAMILY TOP SET UP AND CHARGER PATIENT; PATIENT SLEEPING
--- NOTE | 2019-06-17 11:36 | NUR ---
ATTEMPTED TO CALL PATIENTS DAUGHTER NORRIS AGAIN AT [phone]; NO ANSWER
[2019-06-17 11:39] VITALS: BP 157/93
== END 2019-06-17 11:40 | disposition home or self-care (01) ==
LOC: ER 04:22
DX: F10.120 Alcohol abuse with intoxication, uncomplicated (principal); R55 Syncope and collapse
CPT/HCPCS: 36415; 70450; 71045; 80053; 80307; 80320; 81001; 82550; 82553; 84484; 85025; 93005; 99284; J3411; J7030